=== PATIENT | female | born 1995 | race Two or more races ===

== ENCOUNTER 2021-07-04 10:53 | Emergency (ER) | payer OTHER ==
[~2021-07-04] VITALS: Ht 162.6 cm; Wt 67.0 kg
[2021-07-04 11:36] VITALS: BP 127/59
== END 2021-07-04 12:29 | disposition home or self-care (01) ==
LOC: EMS 10:55
DX: Z20.822 Contact with and (suspected) exposure to COVID-19 (principal)
CPT/HCPCS: 99283; U0003